=== PATIENT | female | born 1980 | race Caucasian/White ===

== ENCOUNTER → 2016-09-15 | Outpatient (CLI) | payer OTHER, BC ==
[~2016-09-15] MED LIST: ADVIL200 MG PO; AMOXICILLIN 8751 TAB PO; EFFEXOR-XR150 MG PO; ELIQUIS 5MG PO; LEVOXYL0.05 MG PO; LOVENOX 8080 MG/0.8 SQ; MOTRIN 600600 MG/TAB PO; MUCINEX D1 TER PO; NORCO 325 MG-51 TAB PO; PERCOCET 325 MG1 TA2 PO; SENOKOT S 50 MG1 TAB PO; TYLENOL 500MG500 MG PO; VALIUM 5MG T5 MG/TAB PO; WELLBUTRIN SR150 M1 PO; WELLBUTRIN XL150 MG PO; ZYRTEC5 MG PO
== END ==
LOC: BHSO 14:06
DX: F33.1 Major depressive disorder, recurrent, moderate (principal)

== ENCOUNTER → 2016-09-16 | Outpatient (CLI) | payer OTHER, BC | LOC: BHSO 15:06 | DX: F33.1 Major depressive disorder, recurrent, moderate (principal) ==

== ENCOUNTER → 2016-09-23 | Outpatient (CLI) | payer OTHER, BC | LOC: BHSO 08:55 | DX: F33.1 Major depressive disorder, recurrent, moderate (principal) ==

== ENCOUNTER 2016-09-30 23:55 | Emergency (ER) | payer OTHER ==
[~2016-09-30] VITALS: Ht 160 cm; Wt 125.0 kg
[~2016-09-30 23:55] MED LIST changes: -EFFEXOR-XR150 MG PO; -ELIQUIS 5MG PO; -LEVOXYL0.05 MG PO; -LOVENOX 8080 MG/0.8 SQ; -MUCINEX D1 TER PO; -VALIUM 5MG T5 MG/TAB PO; -WELLBUTRIN XL150 MG PO; -ZYRTEC5 MG PO
[2016-09-30 23:57] VITALS: BP 133/48; TEMP 97.4
[2016-10-01 00:46] LABS: BASO % 1.1 % (0.0-2.0); EOS # 0.1 (0.0-0.7); EOS % 2.2 % (0-4.0); GRAN # 1.2 (1.4-6.5); LYMPH # 1.3 (1.2-3.4); LYMPH % 47.7 % (20.0-51.0); MEAN CELL VOLUME 90 fl (80.0-100.0); MEAN CORPUSCULAR HGB CONC 33 g/dl (33.0-37.0); MONO # 0.1 (0.1-0.6); MONO % 4.3 % (1.7-9.3); PLATELET COUNT 189 K/mm3 (130-400); RED BLOOD COUNT 3.72 M/mm3 (4.10-5.30); WHITE BLOOD COUNT 2.8 K/mm3 (4.8-10.8)
[2016-10-01 00:49] LABS: HEMATOCRIT 33.3 % (37.0-47.0); MEAN CORPUSCULAR HEMOGLOBIN 30 pg (27.0-31.0)
[2016-10-01 00:56] LABS: ADJUSTED CALCIUM 9.2 mg/dL (8.4-10.2); ALBUMIN 4.3 gm/dL (3.5-5.0); BILIRUBIN,TOTAL 0.8 mg/dL (0.0-1.0); CALCIUM 9.4 mg/dL (8.4-10.2); CREATININE, serum 0.52 mg/dL (0.52-1.25); POTASSIUM 3.7 mmol/L (3.4-5.0); TOTAL PROTEIN 7.3 gm/dL (6.4-8.2)
[2016-10-01 02:56] VITALS: PULSE 88
== END 2016-10-01 02:57 | disposition home or self-care (01) ==
LOC: COL.ER 23:55
PROVIDERS: Emergency Medicine
DX: G43.909 Migraine, unspecified, not intractable, without status migrainosus (principal); Z86.73 Personal history of transient ischemic attack (TIA), and cerebral infarction without residual deficits

== ENCOUNTER → 2016-10-18 | Outpatient (CLI) | payer OTHER ==
[~2016-10-18] MED LIST changes: +EFFEXOR-XR150 MG PO; +ELIQUIS 5MG PO; +LEVOXYL0.05 MG PO; +LOVENOX 8080 MG/0.8 SQ; +MUCINEX D1 TER PO; +VALIUM 5MG T5 MG/TAB PO; +WELLBUTRIN XL150 MG PO; +ZYRTEC5 MG PO
== END ==
LOC: BHSO 14:35
DX: F06.32 Mood disorder due to known physiological condition with major depressive-like episode (principal)

== ENCOUNTER → 2016-11-01 | Outpatient (CLI) | payer OTHER | LOC: BHSO 13:44 | DX: F33.0 Major depressive disorder, recurrent, mild (principal) ==

== ENCOUNTER → 2016-12-13 | Outpatient (CLI) | payer OTHER, BC | LOC: BHSO 13:58 | DX: F33.1 Major depressive disorder, recurrent, moderate (principal) ==

== ENCOUNTER 2016-12-21 06:58 | Day surgery (SDC) | payer OTHER ==
[~2016-12-21] VITALS: Ht 160 cm; Wt 124.1 kg
[2016-12-21] VITALS (7 sets, daily range): BP systolic 125–152; BP diastolic 78–93; PULSE 84–95; TEMP 98–98.1
[~2016-12-21 06:58] MED LIST changes: -EFFEXOR-XR150 MG PO; -ELIQUIS 5MG PO; -LEVOXYL0.05 MG PO; -LOVENOX 8080 MG/0.8 SQ; -MUCINEX D1 TER PO; -VALIUM 5MG T5 MG/TAB PO; -WELLBUTRIN XL150 MG PO; -ZYRTEC5 MG PO
[2016-12-21] MEDS ORDERED: EFFEXOR-XR150 MG PO (13:09)
[2016-12-21] MEDS ORDERED: ELIQUIS 5MG PO (13:09)
[2016-12-21] MEDS ORDERED: ZYRTEC5 MG PO (13:10)
[2016-12-21] MEDS ORDERED: MUCINEX D1 TER PO (13:10)
[2016-12-21] MEDS ORDERED: LOVENOX 8080 MG/0.8 SQ (13:11)
== END 2016-12-21 20:20 | disposition home or self-care (01) ==
LOC: SDCO 06:58 → SURG 18:23 → SDCO 20:20
DX: C50.911 Malignant neoplasm of unspecified site of right female breast (principal); C77.3 Secondary and unspecified malignant neoplasm of axilla and upper limb lymph nodes; G47.33 Obstructive sleep apnea (adult) (pediatric); E11.9 Type 2 diabetes mellitus without complications; F17.210 Nicotine dependence, cigarettes, uncomplicated
CPT/HCPCS: OP; A9541; J0690; J1100; J1170; J2250; J2270; J2704; J2795; J3010; J7030; Q9968

== ENCOUNTER → 2016-12-27 | Outpatient (CLI) | payer OTHER, BC ==
[~2016-12-27] MED LIST changes: +EFFEXOR-XR150 MG PO; +ELIQUIS 5MG PO; +LEVOXYL0.05 MG PO; +LOVENOX 8080 MG/0.8 SQ; +MUCINEX D1 TER PO; +VALIUM 5MG T5 MG/TAB PO; +WELLBUTRIN XL150 MG PO; +ZYRTEC5 MG PO
== END ==
LOC: BHSO 13:55
DX: F33.1 Major depressive disorder, recurrent, moderate (principal)

== ENCOUNTER → 2016-12-28 | Outpatient (CLI) | payer OTHER, BC | LOC: BHSO 14:37 | DX: F06.32 Mood disorder due to known physiological condition with major depressive-like episode (principal) ==

== ENCOUNTER → 2017-02-01 | Outpatient (CLI) | payer OTHER, BC | LOC: BHSO 14:49 | DX: F33.1 Major depressive disorder, recurrent, moderate (principal) ==

== ENCOUNTER → 2017-02-28 | Outpatient (CLI) | payer OTHER, BC | LOC: BHSO 13:24 | DX: F06.32 Mood disorder due to known physiological condition with major depressive-like episode (principal) ==

== ENCOUNTER → 2017-03-09 | Outpatient (CLI) | payer OTHER, BC | LOC: BHSO 14:41 | DX: F33.0 Major depressive disorder, recurrent, mild (principal) ==

== ENCOUNTER → 2017-03-15 | Outpatient (CLI) | payer OTHER, BC | LOC: BHSO 15:05 | DX: F33.1 Major depressive disorder, recurrent, moderate (principal) ==

== ENCOUNTER → 2017-03-22 | Outpatient (CLI) | payer OTHER, BC | LOC: BHSO 14:56 | DX: F33.1 Major depressive disorder, recurrent, moderate (principal) ==

== ENCOUNTER → 2017-03-29 | Outpatient (CLI) | payer OTHER, BC | LOC: BHSO 14:45 | DX: F33.1 Major depressive disorder, recurrent, moderate (principal) ==

== ENCOUNTER 2017-04-01 06:10 | Emergency (ER) | payer OTHER ==
[~2017-04-01] VITALS: Ht 160 cm; Wt 127.3 kg
[~2017-04-01 06:10] MED LIST changes: -LEVOXYL0.05 MG PO; -VALIUM 5MG T5 MG/TAB PO; -WELLBUTRIN XL150 MG PO
[2017-04-01 06:12] VITALS: TEMP 97.7
[2017-04-01] MEDS ORDERED: WELLBUTRIN XL150 MG PO (06:32)
[2017-04-01 07:05] LABS: BASO % 0.6 % (0.0-2.0); EOS # 0.3 (0.0-0.7); EOS % 6.3 % (0-4.0); GRAN # 3.5 (1.4-6.5); GRAN % 65.3 % (42.2-75.2); HEMATOCRIT 40.9 % (37.0-47.0); HEMOGLOBIN 13.6 g/dl (12.5-16.0); LYMPH # 1.1 (1.2-3.4); LYMPH % 20.1 % (20.0-51.0); MEAN CELL VOLUME 90 fl (80.0-100.0); MEAN CORPUSCULAR HEMOGLOBIN 30 pg (27.0-31.0); MEAN CORPUSCULAR HGB CONC 33 g/dl (33.0-37.0); MEAN PLATELET VOLUME 9.6 fl (7.4-10.4); MONO # 0.4 (0.1-0.6); PLATELET COUNT 177 K/mm3 (130-400); RED BLOOD COUNT 4.55 M/mm3 (4.10-5.30); REDCELL DISTRIBUTION WIDTH-CV 13.8 % (11.5-14.5); WHITE BLOOD COUNT 5.4 K/mm3 (4.8-10.8)
[2017-04-01 07:11] LABS: PH 6 (5-8); URINE APPEARANCE Hazy; URINE BACTERIA Rare /hpf; URINE BILIRUBIN Negative (NEGATIVE); URINE BLOOD Negative (NEGATIVE); URINE COLOR Straw; URINE GLUCOSE Negative (NEGATIVE); URINE KETONE Trace (NEGATIVE); URINE RBC 0-2 /hpf; URINE UROBILINOGEN Negative (NEGATIVE); URINE WBC 0-2 /hpf
[2017-04-01 07:18] LABS: ALANINE AMINOTRANSFERASE 53 U/L (9-52); ALBUMIN 4.8 gm/dL (3.5-5.0); ALKALINE PHOSPHATASE 71 U/L (50-136); ANION GAP 14 mmol/L (7-16); BILIRUBIN,TOTAL 0.8 mg/dL (0.0-1.0); BLOOD UREA NITROGEN 6 mg/dL (7-17); CALCIUM 9.6 mg/dL (8.4-10.2); CARBON DIOXIDE 23 mmol/L (22-30); CHLORIDE 102 mmol/L (98-107); CREATININE, serum 0.57 mg/dL (0.52-1.25); GLUCOSE 132 mg/dL (74-106); POTASSIUM 3.7 mmol/L (3.4-5.0); SODIUM 139 mmol/L (137-145)
[2017-04-01 07:23] LABS: ACETAMINOPHEN < 10 ug/mL (10-30); SALICYLATE < 1.0 mg/dL
[2017-04-01 07:27] LABS: AMPHETAMINE URINE NEGATIVE; BARBITURATES URINE NEGATIVE; BENZODIAZEPINES URINE NEGATIVE; BUPRENORPHINE URINE NEGATIVE; METHADONE URINE NEGATIVE; OPIATES URINE NEGATIVE
[2017-04-01 07:28] LABS: OXYCODONE URINE NEGATIVE; PHENCYCLIDINE URINE NEGATIVE; PROPOXYPHENE URINE NEGATIVE; THC CANNABINOIDS URINE POSITIVE
[2017-04-01] MEDS ORDERED: VALIUM 5MG T5 MG/TAB PO (14:34)
[2017-04-01] MEDS ORDERED: LEVOXYL0.05 MG PO (14:34)
[2017-04-01 14:50] VITALS: BP 121/67; PULSE 90
== END 2017-04-01 14:55 | disposition home or self-care (01) ==
LOC: COL.ER 06:10
PROVIDERS: Emergency Medicine
DX: F32.9 Major depressive disorder, single episode, unspecified (principal); G47.00 Insomnia, unspecified; E03.9 Hypothyroidism, unspecified; R45.84 Anhedonia; I10 Essential (primary) hypertension; E11.9 Type 2 diabetes mellitus without complications; Z86.73 Personal history of transient ischemic attack (TIA), and cerebral infarction without residual deficits; Z85.3 Personal history of malignant neoplasm of breast; F17.200 Nicotine dependence, unspecified, uncomplicated

== ENCOUNTER → 2017-04-19 | Outpatient (CLI) | payer OTHER ==
[~2017-04-19] MED LIST changes: +LEVOXYL0.05 MG PO; +VALIUM 5MG T5 MG/TAB PO; +WELLBUTRIN XL150 MG PO
== END ==
LOC: BHSO 14:50
DX: F33.1 Major depressive disorder, recurrent, moderate (principal)

== ENCOUNTER → 2017-05-06 | Outpatient (CLI) | payer OTHER | LOC: BHSO 16:05 | DX: F33.1 Major depressive disorder, recurrent, moderate (principal) ==

== ENCOUNTER → 2017-05-20 | Outpatient (CLI) | payer OTHER | LOC: BHSO 11:13 | DX: F33.1 Major depressive disorder, recurrent, moderate (principal) ==

== ENCOUNTER → 2017-06-10 | Outpatient (CLI) | payer OTHER | LOC: BHSO 13:54 | DX: F33.1 Major depressive disorder, recurrent, moderate (principal) ==

== ENCOUNTER → 2017-06-17 | Outpatient (CLI) | payer OTHER | LOC: BHSO 13:47 | DX: F33.1 Major depressive disorder, recurrent, moderate (principal) ==

== ENCOUNTER → 2017-06-24 | Outpatient (CLI) | payer OTHER | LOC: BHSO 14:03 | DX: F33.1 Major depressive disorder, recurrent, moderate (principal) ==

== ENCOUNTER → 2017-07-08 | Outpatient (CLI) | payer OTHER | LOC: BHSO 13:56 | DX: F33.1 Major depressive disorder, recurrent, moderate (principal) ==

== ENCOUNTER → 2017-08-05 | Outpatient (CLI) | payer OTHER | LOC: BHSO 13:57 | DX: F33.1 Major depressive disorder, recurrent, moderate (principal) ==

== ENCOUNTER → 2017-09-02 | Outpatient (CLI) | payer OTHER | LOC: BHSO 12:52 | DX: F33.1 Major depressive disorder, recurrent, moderate (principal) ==

== ENCOUNTER → 2017-11-03 | Outpatient (CLI) | payer OTHER | LOC: BHSO 09:39 | DX: F06.32 Mood disorder due to known physiological condition with major depressive-like episode (principal) | CPT/HCPCS: G0463 ==

== ENCOUNTER → 2017-11-04 | Outpatient (CLI) | payer OTHER | LOC: BHSO 13:48 | DX: F31.11 Bipolar disorder, current episode manic without psychotic features, mild (principal) ==

== ENCOUNTER → 2017-11-25 | Outpatient (CLI) | payer OTHER | LOC: BHSO 15:51 | DX: F31.11 Bipolar disorder, current episode manic without psychotic features, mild (principal) ==

== ENCOUNTER → 2017-12-14 | Outpatient (CLI) | payer OTHER | LOC: BHSO 14:49 | DX: F31.31 Bipolar disorder, current episode depressed, mild (principal) ==

== ENCOUNTER → 2017-12-15 | Outpatient (CLI) | payer OTHER | LOC: BHSO 09:37 | DX: F31.78 Bipolar disorder, in full remission, most recent episode mixed (principal) | CPT/HCPCS: G0463 ==

== ENCOUNTER → 2018-02-07 | Outpatient (CLI) | payer OTHER | LOC: BHSO 09:40 | DX: F31.31 Bipolar disorder, current episode depressed, mild (principal) | CPT/HCPCS: G0463 ==

== ENCOUNTER → 2018-06-09 | Outpatient (CLI) | payer OTHER | LOC: BHSO 13:19 | DX: F31.78 Bipolar disorder, in full remission, most recent episode mixed (principal) | CPT/HCPCS: G0463 ==

== ENCOUNTER → 2018-09-14 | Outpatient (CLI) | payer OTHER | LOC: BHSO 14:13 | DX: F31.76 Bipolar disorder, in full remission, most recent episode depressed (principal) | CPT/HCPCS: G0463 ==